=== PATIENT | male | born 1985 | race Caucasian/White ===

== ENCOUNTER 2016-12-08 07:51 | Inpatient (IN) | payer OTHER ==
[~2016-12-08] VITALS: Ht 182.9 cm; Wt 80.5 kg
[2016-12-08] VITALS (10 sets, daily range): BP systolic 84–138; BP diastolic 61–90
[~2016-12-08 07:51] MED LIST: GABAPENTIN300 MG PO; IBUPROFEN600 MG PO; NOHOMEMEDS; SERTRALINE HCL100 MG PO
[2016-12-08 08:25] LABS: BASOPHIL COUNT 0.1 K/uL (0-0.1); EOSINOPHIL (%) 0.4 % (0-5); EOSINOPHIL COUNT 0.1 K/uL (0-0.3); HEMATOCRIT 42.3 % (38.0-50.0); IMMATURE GRANULOCYTE (%) 1.6 % (0.0-0.7); IMMATURE GRANULOCYTE COUNT 0.2 K/uL; INSTRUMENT ABS NEUTROPHIL CT 11.4 K/uL; LYMPHOCYTE COUNT 1.5 K/uL (1.0-2.8); MCHC 34.5 G/DL (30.0-36.0); MCV 95.7 FL (86-99); MEAN PLAT.VOLUME 10.8 uM^3 (9.0-12.4); MONOCYTE (%) 4.9 % (3-12); MONOCYTE COUNT 0.7 K/uL (0-0.8); NEUTROPHIL COUNT 11.4 K/uL (1.8-6.4); PLATELET COUNT 225 K/uL (156-360); RBC DIS.WIDTH-CV 12.6 % (11.8-14.6); RBC DIS.WIDTH-SD 44.6 % (39-53); RED BLOOD COUNT 4.42 M/uL (4.00-5.50); WHITE BLOOD COUNT 13.9 K/uL (4.1-10.2)
[2016-12-08 08:33] LABS: AMYLASE 34 IU/L (1-118); CHLORIDE 100 mEq/L (99-109); POTASSIUM 3.6 mEq/L (3.7-5.4); SODIUM 138 mEq/L (136-147)
[2016-12-08 08:35] LABS: GLUCOSE 143 mg/dL (70-99)
[2016-12-08 08:36] LABS: ANION GAP 13 MEQ/L (2-14)
[2016-12-08 08:38] LABS: SERUM ETHYL ALCOHOL < 10 mg/dL
[2016-12-08 08:39] LABS: GFR ESTIMATE (CALCULATED) > 59 mL/min/
[2016-12-08 08:40] LABS: UREA NITROGEN (BUN) 12 mg/dL (9-23)
[2016-12-08 08:42] LABS: LIPASE 51 U/L (1.0-51.0)
[2016-12-08 09:21] LABS: ADD MIUA? YES; BILIRUBIN NEGATIVE; BLOOD SMALL; COLOR YELLOW ((YELLOW)); GLUCOSE (STRIP) NEGATIVE; KETONES NEGATIVE; LEUKOCYTES NEGATIVE; NITRITE NEGATIVE; PROTEIN (STRIP) 100; SPECIFIC GRAVITY 1.016 (1.000-1.030); UROBILINOGEN 0.2 MG/DL (0.2-1.0)
[2016-12-08 09:23] LABS: BACTERIA NONE SEEN /HPF; EPITHELIAL CELLS NONE SEEN /HPF; MUCUS NONE SEEN /LPF; RED BLOOD CELLS 0-5 /HPF (0-5); UCUL ADDED? NO; WHITE BLOOD CELLS 0-5 /HPF (0-5)
[2016-12-08 09:30] LABS: AMPHETAMINE NEGATIVE (500 ng/mL); BARBITURATES NEGATIVE (200 ng/mL); BENZODIAZEPINES NEGATIVE (150 ng/mL); COCAINE NEGATIVE (150 ng/mL); INTERNAL CONTROLS VALID? YES; METHADONE NEGATIVE (200 ng/mL); METHAMPHETAMINE NEGATIVE (500 ng/mL); OPIATES (MORPHINE) NEGATIVE (100 ng/mL); OXYCODONE NEGATIVE (100 ng/mL); PHENCYCLIDINE NEGATIVE (25 ng/mL); PROPOXYPHENE NEGATIVE (300 ng/mL); THC CANNABINOIDS PRESUMPTIVE POSITIVE (50 ng/mL); TRICYCLIC ANTIDEPRESSANTS NEGATIVE (300 ng/mL)
[2016-12-08 09:31] LABS: ADD MEDTOX COMMENT Y
[2016-12-08 14:20] LABS: METH RESISTANT S AUREUS PCR NEGATIVE (NEGATIVE)
[2016-12-08 14:32] LABS: PROBE CHECK PASS; SPECIMEN PROCESSING CONTROL PASS
[2016-12-09] VITALS (13 sets, daily range): BP systolic 116–133; BP diastolic 67–85
[2016-12-09 06:18] LABS: BASOPHIL COUNT 0.1 K/uL (0-0.1); EOSINOPHIL (%) 1.9 % (0-5); EOSINOPHIL COUNT 0.2 K/uL (0-0.3); HEMATOCRIT 36.9 % (38.0-50.0); IMMATURE GRANULOCYTE (%) 0.3 % (0.0-0.7); LYMPHOCYTE COUNT 2.3 K/uL (1.0-2.8); MCH 34.6 PG (29.0-34.0); MCHC 35.2 G/DL (30.0-36.0); MCV 98.1 FL (86-99); MEAN PLAT.VOLUME 10.9 uM^3 (9.0-12.4); MONOCYTE (%) 11.5 % (3-12); NEUTROPHIL (%) 58.6 % (45-76); PLATELET COUNT 175 K/uL (156-360); RBC DIS.WIDTH-CV 13.2 % (11.8-14.6); RBC DIS.WIDTH-SD 47.3 % (39-53); RED BLOOD COUNT 3.76 M/uL (4.00-5.50); WHITE BLOOD COUNT 8.6 K/uL (4.1-10.2)
[2016-12-09 06:39] LABS: ANION GAP 5 MEQ/L (2-14); CHLORIDE 101 MEQ/L (99-109); POTASSIUM 4.1 MEQ/L (3.7-5.4); SAMPLE HEMOLYSIS CHECK 0; SAMPLE ICTERIC CHECK 0; SAMPLE LIPEMIA CHECK 0; SODIUM 138 MEQ/L (136-147); TOTAL BILIRUBIN 0.6 MG/DL (0.0-1.0)
[2016-12-09 06:45] LABS: ALKALINE PHOSPHATASE 49 IU/L (3-129); GFR ESTIMATE (CALCULATED) > 59 mL/min/; GLUCOSE 117 mg/dL (70-99); UREA NITROGEN (BUN) 11 mg/dL (9-23)
[2016-12-10] VITALS (7 sets, daily range): BP systolic 123–135; BP diastolic 58–93
[2016-12-10 15:22] LABS: MCH 33.1 PG (29.0-34.0); MCHC 33.4 G/DL (30.0-36.0); MCV 98.9 FL (86-99); MEAN PLAT.VOLUME 10.6 uM^3 (9.0-12.4); PLATELET COUNT 128 K/uL (156-360); RBC DIS.WIDTH-CV 12.7 % (11.8-14.6); RBC DIS.WIDTH-SD 46.4 % (39-53); RED BLOOD COUNT 3.54 M/uL (4.00-5.50)
[2016-12-10 15:47] LABS: ANION GAP 11 MEQ/L (2-14); CHLORIDE 102 MEQ/L (99-109); GFR ESTIMATE (CALCULATED) > 59 mL/min/; GLUCOSE 100 mg/dL (70-99); POTASSIUM 3.7 MEQ/L (3.7-5.4); SAMPLE HEMOLYSIS CHECK 0; SAMPLE ICTERIC CHECK 0; SAMPLE LIPEMIA CHECK 0; SODIUM 140 MEQ/L (136-147); UREA NITROGEN (BUN) 8 mg/dL (9-23)
[2016-12-11 03:00] VITALS: BP 126/68
[2016-12-11 08:15] VITALS: BP 138/64
[2016-12-11 13:15] VITALS: BP 143/79
[2016-12-11 15:29] VITALS: BP 146/92
[2016-12-11 19:48] VITALS: BP 146/82
[2016-12-12 00:11] VITALS: BP 132/72
[2016-12-12 05:28] VITALS: BP 133/76
[2016-12-12 07:25] VITALS: BP 140/87
[2016-12-12 11:07] VITALS: BP 138/85
[2016-12-12 15:35] VITALS: BP 156/90
[2016-12-12 23:17] VITALS: BP 159/72
[2016-12-13 03:45] VITALS: BP 138/72
[2016-12-13 08:00] VITALS: BP 130/81
[2016-12-13 16:07] VITALS: BP 141/82
[2016-12-13] MEDS ORDERED: DIAZEPAM5 MG PO (16:57)
[2016-12-13] MEDS ORDERED: OXYCONTIN15 MG PO (16:57)
[2016-12-13] MEDS ORDERED: OXYCODONE HCL5 MG PO (16:57)
[2016-12-13] MEDS ORDERED: SENNA LAX8.6 MG PO (16:57)
[2016-12-13] MEDS ORDERED: TRAMADOL HCL50 MG PO (16:57)
[2016-12-13] MEDS ORDERED: CHLORZOXAZONE500 MG PO (16:57)
[2016-12-13] MEDS ORDERED: NICOTINE PATCH1 EAC2 TD (16:57)
[2016-12-20] MEDS ORDERED: VALIUM5 MG PO (12:50)
[2016-12-20] MEDS ORDERED: SENNA LAXATIVE8.6 MG PO (12:51)
[2016-12-20] MEDS ORDERED: PARAFON FORTE500 MG PO (12:53)
== END 2016-12-13 19:33 | disposition home or self-care (01) | DRG 964 ==
LOC: TRA 07:51 → EME 07:51 → 3EAST 10:20 → 4WEST 10:20 → EDOF 10:20 → ENRESERV 10:26 → CANRESERV 10:26 → ENRESERV 10:28 → 4WEST 12:55 → ENRESERV 12-11 11:03 → 3EAST 12-11 12:36
PROVIDERS: Emergency Medicine; Surgery
DX: S52.021A Displaced fracture of olecranon process without intraarticular extension of right ulna, initial encounter for closed fracture (principal); S22.41XA Multiple fractures of ribs, right side, initial encounter for closed fracture; S22.089A Unspecified fracture of T11-T12 vertebra, initial encounter for closed fracture; S27.0XXA Traumatic pneumothorax, initial encounter; S32.019A Unspecified fracture of first lumbar vertebra, initial encounter for closed fracture; S32.301A Unspecified fracture of right ilium, initial encounter for closed fracture; S32.029A Unspecified fracture of second lumbar vertebra, initial encounter for closed fracture; S32.039A Unspecified fracture of third lumbar vertebra, initial encounter for closed fracture; S32.049A Unspecified fracture of fourth lumbar vertebra, initial encounter for closed fracture; S32.059A Unspecified fracture of fifth lumbar vertebra, initial encounter for closed fracture; S27.321A Contusion of lung, unilateral, initial encounter; S62.16 Fracture of pisiform; S62.162A Displaced fracture of pisiform, left wrist, initial encounter for closed fracture; S30.810A Abrasion of lower back and pelvis, initial encounter; W13.2XXA Fall from, out of or through roof, initial encounter; S60.811A Abrasion of right wrist, initial encounter; F17.210 Nicotine dependence, cigarettes, uncomplicated; F12.10 Cannabis abuse, uncomplicated; M25.512 Pain in left shoulder; I10 Essential (primary) hypertension; Y93.H3 Activity, building and construction; Y92.9 Unspecified place or not applicable; Y99.0 Civilian activity done for income or pay
CPT/HCPCS: 70450; 71010; 71260; 72125; 72129; 72132; 73080; 73110; 73200; 74177; 80048; 80053; 81003; 82150; 83690; 84999; 85025; 85027; 86850; 86900; 86901; 87641; 90832; 93005; 99281; 99285; G0480; J1170; J1885; J2405; J3480; Q0169

== ENCOUNTER 2016-12-21 09:49 | Day surgery (SDC) | payer SELFPAY ==
[~2016-12-21] VITALS: Ht 182.9 cm; Wt 77.1 kg
[~2016-12-21 09:49] MED LIST changes: +CHLORZOXAZONE500 MG PO; +DIAZEPAM5 MG PO; +NICOTINE PATCH1 EAC2 TD; +OXYCODONE HCL5 MG PO; +OXYCONTIN15 MG PO; +PARAFON FORTE500 MG PO; +SENNA LAX8.6 MG PO; +SENNA LAXATIVE8.6 MG PO; +TRAMADOL HCL50 MG PO; +VALIUM5 MG PO
[2016-12-21] MEDS ORDERED: OXYCONTIN15 MG PO (10:28)
[2016-12-21] MEDS ORDERED: TRAMADOL HCL50 MG PO (10:29)
[2016-12-21 10:39] LABS: INTER. NORMALIZED RATIO 1.2; PROTHROMBIN TIME 13.1 SEC (10.2-12.9)
[2016-12-21 10:42] VITALS: BP 135/84
[2016-12-21 17:40] VITALS: BP 138/84
[2016-12-21 18:35] VITALS: BP 138/72
== END 2016-12-21 18:35 | disposition home or self-care (01) ==
LOC: SDC 09:49
PROVIDERS: Orthopaedic Surgery
PROC: 0PSK04Z Reposition Right Ulna with Internal Fixation Device, Open Approach (ICD-10-PCS; principal; 2016-12-21)
DX: S52.031A Displaced fracture of olecranon process with intraarticular extension of right ulna, initial encounter for closed fracture (principal); W13.2XXA Fall from, out of or through roof, initial encounter; Y93.H3 Activity, building and construction; I10 Essential (primary) hypertension; F17.210 Nicotine dependence, cigarettes, uncomplicated
CPT/HCPCS: 73070; 76000; 85610; 85730; C1713; J0360; J0690; J1170; J1885; J2250; J2405; J3010; S0020

== ENCOUNTER 2017-04-04 17:24 | Inpatient (IN) | payer OTHER ==
[~2017-04-04] VITALS: Ht 182.9 cm; Wt 81.0 kg
[2017-04-04 17:58] LABS: HEMATOCRIT 44.6 % (38.0-50.0); MCH 34.1 PG (29.0-34.0); MCHC 35.9 G/DL (30.0-36.0); MCV 95.1 FL (86-99); MEAN PLAT.VOLUME 9.5 uM^3 (9.0-12.4); PLATELET COUNT 307 K/uL (156-360); RBC DIS.WIDTH-CV 13.8 % (11.8-14.6); RBC DIS.WIDTH-SD 48.2 % (39-53); RED BLOOD COUNT 4.69 M/uL (4.00-5.50)
[2017-04-04 18:11] LABS: CHLORIDE 107 mEq/L (99-109); POTASSIUM 3.3 mEq/L (3.7-5.4); SODIUM 141 mEq/L (136-147)
[2017-04-04 18:12] LABS: AMPHETAMINE NEGATIVE (500 ng/mL); BARBITURATES NEGATIVE (200 ng/mL); BENZODIAZEPINES NEGATIVE (150 ng/mL); COCAINE NEGATIVE (150 ng/mL); INTERNAL CONTROLS VALID? YES; METHADONE NEGATIVE (200 ng/mL); METHAMPHETAMINE NEGATIVE (500 ng/mL); OPIATES (MORPHINE) NEGATIVE (100 ng/mL); OXYCODONE NEGATIVE (100 ng/mL); PHENCYCLIDINE NEGATIVE (25 ng/mL); PROPOXYPHENE NEGATIVE (300 ng/mL); THC CANNABINOIDS NEGATIVE (50 ng/mL); TRICYCLIC ANTIDEPRESSANTS NEGATIVE (300 ng/mL)
[2017-04-04 18:13] LABS: GLUCOSE 91 mg/dL (70-99)
[2017-04-04 18:14] LABS: ANION GAP 14 MEQ/L (2-14)
[2017-04-04 18:16] LABS: SERUM ETHYL ALCOHOL 226 mg/dL
[2017-04-04 18:17] LABS: GFR ESTIMATE (CALCULATED) > 59 mL/min/ (58.99-99999)
[2017-04-04 18:18] LABS: UREA NITROGEN (BUN) 8 mg/dL (9-23)
[2017-04-05 05:25] VITALS: BP 173/95
[2017-04-05 07:53] VITALS: BP 127/68
[2017-04-05 11:33] VITALS: BP 149/92
[2017-04-05 15:27] VITALS: BP 149/94
[2017-04-05 19:55] VITALS: BP 151/84
[2017-04-06 08:00] VITALS: BP 126/66
[2017-04-06 11:51] VITALS: BP 131/85
[2017-04-06 15:45] VITALS: BP 138/91
[2017-04-07 08:00] VITALS: BP 119/78
[2017-04-07 10:17] VITALS: BP 129/73
[2017-04-07] MEDS ORDERED: KETOROLAC TROME10 MG PO (10:45)
== END 2017-04-07 10:47 | disposition home or self-care (01) | DRG 882 ==
LOC: EME 17:24 → 1WEST 04-05 03:45 → EDOF 04-05 03:45 → ENRESERV 04-05 04:19 → 1WEST 04-05 05:15
DX: F43.23 Adjustment disorder with mixed anxiety and depressed mood (principal); R45.851 Suicidal ideations; Z72.811 Adult antisocial behavior; F10.229 Alcohol dependence with intoxication, unspecified; Y90.7 Blood alcohol level of 200-239 mg/100 ml; I10 Essential (primary) hypertension; F17.200 Nicotine dependence, unspecified, uncomplicated; Z76.5 Malingerer [conscious simulation]; Z59.0 Homelessness
CPT/HCPCS: 80048; 85027; 90839; 97150 GO; 97165 GO; 99281; 99285; G0480

== ENCOUNTER 2017-04-22 13:03 | Emergency (ER) | payer OTHER ==
[~2017-04-22] VITALS: Ht 182.9 cm; Wt 81.2 kg
[~2017-04-22 13:03] MED LIST changes: +KETOROLAC TROME10 MG PO
[2017-04-22 15:06] LABS: HEMATOCRIT 44.7 % (38.0-50.0); MCH 33.4 PG (29.0-34.0); MCHC 35.8 G/DL (30.0-36.0); MCV 93.3 FL (86-99); PLATELET COUNT 233 K/uL (156-360); RBC DIS.WIDTH-CV 13.3 % (11.8-14.6); RBC DIS.WIDTH-SD 45.8 % (39-53); RED BLOOD COUNT 4.79 M/uL (4.00-5.50); WHITE BLOOD COUNT 6.8 K/uL (4.1-10.2)
[2017-04-22 15:13] LABS: AMPHETAMINE NEGATIVE (500 ng/mL); BARBITURATES NEGATIVE (200 ng/mL); BENZODIAZEPINES PRESUMPTIVE POSITIVE (150 ng/mL); BUPRENORPHINE NEGATIVE (10 ng/mL); COCAINE NEGATIVE (150 ng/mL); METHADONE NEGATIVE (200 ng/mL); METHAMPHETAMINE NEGATIVE (500 ng/mL); OPIATES (MORPHINE) NEGATIVE (100 ng/mL); OXYCODONE NEGATIVE (100 ng/mL); PHENCYCLIDINE NEGATIVE (25 ng/mL); PROPOXYPHENE NEGATIVE (300 ng/mL); THC CANNABINOIDS NEGATIVE (50 ng/mL); TRICYCLIC ANTIDEPRESSANTS NEGATIVE (300 ng/mL)
[2017-04-22 15:14] LABS: CHLORIDE 103 mEq/L (99-109); POTASSIUM 3.9 mEq/L (3.7-5.4); SODIUM 140 mEq/L (136-147)
[2017-04-22 15:16] LABS: GLUCOSE 87 mg/dL (70-99)
[2017-04-22 15:20] LABS: CREATININE 1.1 mg/dL (0.6-1.3); GFR ESTIMATE (CALCULATED) > 59 mL/min/ (58.99-99999)
[2017-04-22 15:21] LABS: UREA NITROGEN (BUN) 9 mg/dL (9-23)
[2017-04-22] MEDS ORDERED: ATIVAN1 MG PO (15:39)
[2017-04-22 15:50] VITALS: BP 154/99
[2017-04-22 15:52] LABS: BENZODIAZEPINES, URINE SCREEN Negative (200 ng/mL)
== END 2017-04-22 16:12 | disposition home or self-care (01) ==
LOC: EME 13:03
PROVIDERS: Emergency Medicine
DX: F10.20 Alcohol dependence, uncomplicated (principal); R11.0 Nausea; R05 Cough; F17.200 Nicotine dependence, unspecified, uncomplicated; Z59.0 Homelessness
CPT/HCPCS: 80048; 84999; 85027; 99281; 99285